=== PATIENT | female | born 1985 | race African-American/Black ===

== ENCOUNTER 2019-03-04 20:52 | Emergency (ER) | payer OTHER ==
[~2019-03-04] VITALS: Ht 167.6 cm; Wt 78.5 kg
[~2019-03-04 20:52] MED LIST: BIRTH CONTROL; IBUPROFEN 600600 M1 PO; NORCO 5-325 TA1 EACH PO
[2019-03-04] MEDS ORDERED: CYCLOBENZAPRINE5 MG PO (21:03)
[2019-03-04 23:02] VITALS: BP 124/88
== END 2019-03-04 23:03 | disposition home or self-care (01) ==
LOC: ER 20:52
DX: S46.812A Strain of other muscles, fascia and tendons at shoulder and upper arm level, left arm, initial encounter (principal); R07.89 Other chest pain; F17.210 Nicotine dependence, cigarettes, uncomplicated; V89.2XXA Person injured in unspecified motor-vehicle accident, traffic, initial encounter; Y93.89 Activity, other specified; Y92.89 Other specified places as the place of occurrence of the external cause; Y99.8 Other external cause status

== ENCOUNTER 2019-09-10 18:14 | Emergency (ER) | payer OTHER ==
[~2019-09-10] VITALS: Ht 160 cm; Wt 78.0 kg
[~2019-09-10 18:14] MED LIST changes: +CYCLOBENZAPRINE5 MG PO
[2019-09-10] MEDS ORDERED: TAMIFLU75 MG PO (19:47)
[2019-09-10 20:57] VITALS: BP 131/83
== END 2019-09-10 21:00 | disposition home or self-care (01) ==
LOC: ER 18:14
DX: O26.891 Other specified pregnancy related conditions, first trimester (principal); J10.1 Influenza due to other identified influenza virus with other respiratory manifestations; R19.7 Diarrhea, unspecified; F17.210 Nicotine dependence, cigarettes, uncomplicated; Z3A.01 Less than 8 weeks gestation of pregnancy

== ENCOUNTER 2021-03-12 17:32 | Emergency (ER) | payer OTHER ==
[~2021-03-12] VITALS: Ht 167.6 cm; Wt 77.1 kg
[~2021-03-12 17:32] MED LIST changes: +TAMIFLU75 MG PO
[2021-03-12 18:09] LABS: ABSOLUTE NEUTROPHILS 3.4 thou/uL (1.4-8.2); BASOPHILS 0.6 % (0.0-2.0); EOSINOPHILS 0.6 % (0.0-3.0); HEMATOCRIT 38.9 % (37.0-47.0); HEMOGLOBIN 12.7 gm/dL (12.0-15.0); LYMPHOCYTES 18.6 % (24.0-44.0); MCH 28.8 pg (26.0-34.0); MCHC 32.6 g/dL (28.0-37.0); MCV 88.4 fL (80.0-100.0); MONOCYTES 15.9 % (1.0-8.0); PLATELET COUNT 234 thou/uL (150-400); POLYS 64.3 % (36.0-66.0); RDW 13.9 % (10.5-14.5); WBC 5.3 thou/uL (4.0-11.0)
[2021-03-12 18:17] LABS: ANION GAP 8 mmol/L (7-16); BUN 12 mg/dL (7-18); CALCIUM 8.8 mg/dL (8.5-10.1); CHLORIDE 106 mmol/L (98-107); CO2 29 mmol/L (21-32); GLUCOSE 109 mg/dL (74-106); POTASSIUM 3.8 mmol/L (3.5-5.1); SODIUM 143 mmol/L (136-145)
[2021-03-12 18:26] LABS: TROPONIN-I <0.06 ng/mL (<0.06)
[2021-03-12 19:54] VITALS: BP 150/92
--- NOTE | 2021-03-13 09:35 | EKG ---
[place] [address] [place] [address] ELECTROCARDIOGRAM REPORT Name: LIBERTAD MOSHER [id number] Admission: 03/12/21 Attend Phys: Discharge: 03/12/21 Date of : 81 Report #: [id number] [facility] ED Test Date: 2021-03-12 Test Time: 17:37:33 Pat Name: LIBERTAD MOSHER Department: Room: Gender: F [employer]: : 1985 Requested By: Michele Whitley Order Number: [id number] MD: Brayden Mccormack Measurements Intervals [place] Rate: 104 P: 51 MN: 158 QRS: -19 QRSD: 93 T: 19 QT: 321 QTc: 423 Interpretive Statements Sinus tachycardia Borderline left axis deviation RSR' in V1 or V2, probably normal variant No previous ECG available for comparison Electronically Signed On 03-13-2021 9:35:04 CDT by Brayden Mccormack [email or web address] <ELECTRONICALLY SIGNED> By: Brayden Mccormack MD, [facility] 03/13/21 0935 1737 1737 Brayden Mccormack MD, FACC /EPI
== END 2021-03-12 19:54 | disposition home or self-care (01) ==
LOC: ER 17:32
PROVIDERS: Emergency Medicine
DX: U07.1 COVID-19 (principal); F17.210 Nicotine dependence, cigarettes, uncomplicated

== ENCOUNTER 2021-03-15 04:57 | Emergency (ER) | payer OTHER ==
[~2021-03-15] VITALS: Ht 167.6 cm; Wt 77.1 kg
[2021-03-15 05:01] VITALS: BP 151/95
[2021-03-15] MEDS ORDERED: MEDROLDOSEPACK PO (05:06)
[2021-03-15] MEDS ORDERED: HYDROXYZINE HCL25 M2 PO (05:06)
[2021-03-15] MEDS ORDERED: PEPCID40 MG PO (05:06)
== END 2021-03-15 05:40 | disposition home or self-care (01) ==
LOC: ER 04:57
DX: T78.49XA Other allergy, initial encounter (principal); L50.8 Other urticaria; F17.210 Nicotine dependence, cigarettes, uncomplicated; Z98.890 Other specified postprocedural states; Z79.891 Long term (current) use of opiate analgesic; Z79.899 Other long term (current) drug therapy; X58.XXXA Exposure to other specified factors, initial encounter